=== PATIENT | male | born 1960 | race Caucasian/White ===

== ENCOUNTER 2016-06-29 07:52 | Emergency (ER) | payer OTHER ==
[2016-06-29] MEDS ORDERED: DIPHTH,PERTUSS(ACELL),TET 0.5 ML DISP.SYRIN IM ONE (08:01)
--- NOTE | 2016-06-29 08:02 | PDOC ---
History of Present Illness - General Chief Complaint: Injury Stated Complaint: PAIN ELBOW Time Seen by Provider: 06/29/16 08:01 - History of Present Illness Initial Comments: 06/29/16 08:07 Chief complaint: Pain left elbow History of present illness: Patient was unloading his truck yesterday at work, lost control of a heavy box, which resulted in him striking his elbow against the side of the truck and scraping his fifth finger. He has persistent pain in the elbow, especially with hyperflexion. There is no pain numbness tingling or limited motion in the finger. Review of systems: Denies head or neck injury, chest pain, shortness of breath, abdominal pain, nausea, vomiting, diarrhea, visual or focal neurologic symptoms , unsteadiness of gait, lightheadedness or dizziness, vertigo. Past medical history: Hypertension controlled with antihypertensive medication. Social/family history reviewed and noncontributory Physical exam: Alert and oriented 3, well-developed well-nourished, no acute distress, cheerful and cooperative Afebrile, vital signs normal Head atraumatic. PERRLA, ENT clear Neck supple without bruit mass or nodes. No tenderness or deformity, full range of motion without pain Chest clear bilaterally. No rib cage or chest wall tenderness or deformity CV S1 and S2 normal without murmur or gallop pulses. Symmetric no JVD or edema Abdomen benign Neurological C2 to 12 intact. Strength is symmetric. No focal sensory or motor deficits. Gait stable. Extremities: There is point tenderness over the radial head, left elbow. There is no deformity, swelling, effusion, or crepitus. There is full range of motion in extension and flexion, however, with flexion there is mild pain. No limitation or pain with supination and pronation. Pulses full to the distal extremity. No distal sensory or motor deficits. The left fifth finger demonstrates an abrasion over the dorsum of the middle and distal phalanges. This is superficial. There is full joint flexion against resistance of the PIP and DIP joints. There is no sensory deficit to the fingertip. There is no deformity, either angular rotational, and no pain or tenderness. Impression: Elbow contusion, possible minor radial head fracture. Superficial abrasion of the finger Plan: X-ray and further orthopedic management of the elbow. Wound care and tetanus booster abrasion on the finger. Past History - Past Medical History Allergies/Adverse Reactions: Allergies Allergy/AdvReac Type Severity Reaction Status Date / Time No Known Allergies Allergy Verified 06/29/16 07:53 Home Medications: Ambulatory Orders Lisinopril/Hydrochlorothiazide [Lisinopril-Hctz 10-12.5 mg Tab] 1 each PO Medical Decision Making - Medical Decision Making 06/29/16 08:43 X-ray of the elbow shows only calcifications over the olecranon, but there is no swelling redness or tenderness in this area. This is probably old. The radial head appears intact, but occult fracture cannot be completely excluded The wound was scrubbed, irrigated, and dressed with bacitracin The left arm was placed in a sling to allow rest of the elbow. If pain persists , patient is instructed to see an orthopedist for further evaluation and treatment. He is cautioned to not maintained immobilization for an extended period due to the possibility of stiffness and functional impairment. He understands and agrees. Will follow up as directed. *DC/Admit/Observation/Transfer Diagnosis at time of Disposition: Contusion of left elbow Qualifiers: Encounter type: initial encounter Qualified Code(s): S50.02XA - Contusion of left elbow, initial encounter Abrasion of finger Qualifiers: Encounter type: initial encounter Qualified Code(s): S60.419A - Abrasion of unspecified finger, initial encounter - Discharge Dispostion Disposition: HOME Condition at time of disposition: Stable Admit: No - Referrals Referrals: Bolivar Galloway MD [Staff Physician] - 3 days - Patient Instructions Printed Discharge Instructions: How to Use a Sling, DI for Contusion, DI for Abrasion Additional Instructions: Do not immobilize the elbow and a sling for longer than 3 days without consulting an orthopedist. Stiffness and disability could result. - Post Discharge Activity Work/School Note: Back to Work
[2016-06-29 08:06] VITALS: BP 171/97; PULSE 71; TEMP 97.5; BMI 32.5
== END 2016-06-29 08:55 | disposition home or self-care (01) ==
LOC: FER 07:52
PROC: 3E0234Z Introduction of Serum, Toxoid and Vaccine into Muscle, Percutaneous Approach (ICD-10-PCS; principal; 2016-06-29)
DX: S50.02XA Contusion of left elbow, initial encounter (principal); S60.417A Abrasion of left little finger, initial encounter; W22.09XA Striking against other stationary object, initial encounter; Y93.89 Activity, other specified; Y92.9 Unspecified place or not applicable; Y99.0 Civilian activity done for income or pay; I10 Essential (primary) hypertension
CPT/HCPCS: 73070-TC-LT; 90715; 99283-25

== ENCOUNTER 2018-04-06 18:50 | Emergency (ER) | payer OTHER ==
[2018-04-06 19:16] VITALS: BP 139/89; PULSE 73; TEMP 97.8; BMI 32.5
--- NOTE | 2018-04-06 19:52 | PDOC ---
History of Present Illness - History of Present Illness Initial Comments: 04/06/18 20:02 The patient is a 57 year old male, with a significant past medical history of tendonitis to the right hand and hypertension, who presents to the emergency department with, dog bite to the right hand. As per patient, he was breaking up a fight between his dogs and one of them bit the palmar aspect of his right hand. They also endorse 3 superficial cuts to the lateral portion of the thumb. Dogs are up to date with their immunizations. The patient went to urgent care prior to his arrival. Urgent care advised that he would need to see a hand specialist, prompting his visit to the ER. He denies decreased ROM, weakness, or tingling to the hand. He denies any recent fevers, chills, headache or dizziness. He denies any recent nausea, vomit , diarrhea or constipation. He denies any recent chest pain or shortness of breath. He denies any recent dysuria, frequency, urgency or hematuria. PAST MEDICAL HISTORY: Hypertension. PAST SURGICAL HISTORY: no significant history FAMILY HISTORY: no pertinent history SOCIAL HISTORY: Pt lives with family and is employed. MEDICATIONS: reviewed ALLERGIES: As per nursing notes ROS: General: No fevers or chills, no weakness, no weight loss HEENT: No change in vision. No sore throat,. No ear pain CardioVascular: No chest pain or shortness of breath Respiratory:No cough, or wheezing. Gastrointestinal: no nausea, vomiting, diarrhea or constipation, No rectal bleeding Genitourinary: No dysuria, hematuria, or frequency Musculoskeletal: No joint or muscle pain or swelling Neurologic: No headache, vertigo, dizziness or loss of consciousness Psychiatric: nor depression +Skin: Laceration to the right hand. No rashes or easy bruising Endocrine: no increased thirst or abnormal weight change Allergic: no skin or latex allergy All other systems reviewed and normal Physical Exam: GENERAL: The patient is awake, alert, and fully oriented, in no acute distress. HEAD: Normal with no signs of trauma. EYES: Pupils equal, round and reactive to light, extraocular movements intact, sclera anicteric, conjunctiva clear. +EXTREMITIES: Right hand: 2 cm laceration over the thenar amanenet of the right hand with mild venous oozing. Full ROM and sensation distally intact. 3 superficial cm lacerations to the lateral portion of the thumb. No active bleeding, appearing superficial. Normal range of motion, no edema. NEUROLOGICAL: Normal speech, normal gait. PSYCH: Normal mood, normal affect. SKIN: Warm, Dry, normal turgor, no rashes or lesions noted. <Isa Cao - Last Filed: 04/06/18 20:02> - General History Source: Patient Exam Limitations: No Limitations - History of Present Illness Initial Comments: 04/06/18 20:33 A portion of this note was documented by scribe services under my direction. I have reviewed the details of the note, within reason, and agree with the documentation. The case summary and management plan written by me. Procedure note Lacerations were anesthetized with 1% lidocaine no epinephrine. Lacerations were thoroughly irrigated with normal saline using a Zerowet One suture was placed in the largest laceration to lucid close it as it was still bleeding Bacitracin and sterile dressing was applied Patient was made aware that there is a possible tooth/foreign body in his hand. Patient was given copies of his x-rays Patient will be referred to a hand surgeon. Patient's started on Augmentin first dose given in the emergency room and prescription sent to his pharmacy <Magalis Simpson I - Last Filed: 04/06/18 20:38> - General Chief Complaint: Laceration Stated Complaint: RIGHT HAND LACERATION Time Seen by Provider: 04/06/18 19:27 Past History <Isa Cao - Last Filed: 04/06/18 20:02> - Past Medical History COPD: No HTN: Yes - Suicide/Smoking/Psychosocial Hx Smoking History: Former smoker Have you smoked in the past 12 months: No If you are a former smoker, when did you quit?: 40 yrs ago Information on smoking cessation initiated: No Hx Alcohol Use: No Drug/Substance Use Hx: No Substance Use Type: None <Magalis Simpson I - Last Filed: 04/06/18 20:38> - Past Medical History Allergies/Adverse Reactions: Allergies Allergy/AdvReac Type Severity Reaction Status Date / Time No Known Allergies Allergy Verified 04/06/18 18:54 Home Medications: Ambulatory Orders Amoxicillin/Potassium Clav [Augmentin 875-125 Tablet] 1 each PO BID #10 tablet 04/06/18 Hydrochlorothiazide [Hctz -] 12.5 mg PO DAILY 04/06/18 Lisinopril 10 mg PO DAILY 04/06/18 *Physical Exam - Vital Signs Last Vital Signs Temp Pulse Resp BP Pulse Ox 97.8 F 73 16 139/89 97 04/06/18 19:06 04/06/18 19:06 04/06/18 19:06 04/06/18 19:06 04/06/18 19:06 <Isa Cao - Last Filed: 04/06/18 20:02> - Vital Signs Last Vital Signs Temp Pulse Resp BP Pulse Ox 97.8 F 73 16 139/89 97 04/06/18 19:06 04/06/18 19:06 04/06/18 19:06 04/06/18 19:06 04/06/18 19:06 <Magalis Simpson I - Last Filed: 04/06/18 20:38> *DC/Admit/Observation/Transfer - Attestations Scribe Attestion: 04/06/18 20:03 Documentation prepared by Isa Cao, acting as medical dosimetrist for Magalis Simpson MD. <Isa Cao - Last Filed: 04/06/18 20:02> - Discharge Dispostion Decision to Admit order: No <Magalis Simpson I - Last Filed: 04/06/18 20:38> Diagnosis at time of Disposition: Dog bite of right hand Qualifiers: Encounter type: initial encounter Qualified Code(s): S61.451A - Open bite of right hand, initial encounter; W54.0XXA - Bitten by dog, initial encounter - Discharge Dispostion Disposition: HOME Condition at time of disposition: Good - Referrals Referrals: Snow England MD [Primary Care Provider] - - Patient Instructions Printed Discharge Instructions: DI for Dog Bite Additional Instructions: Tylenol or Motrin as needed for pain Your x-ray shows a possible foreign body of a dog tooth in the bite. It was not readily visible however it is important to make the hand surgeon aware of the possible foreign body. Take Augmentin 1 tablet twice a day for 5 days. Follow-up with a hand surgeon Dr. Walters at [phone] call in the morning for an appointment Return to the emergency department immediately with ANY new, persistent or worsening symptoms. Continue any medications as previously prescribed by your physician. You should follow up with your primary doctor as soon as possible regarding today's emergency department visit. . Please make sure your doctor reviews the results of your emergency evaluation. Thank you for coming to the Emergency Department today for your care. It was a pleasure to see you today. Please note that your evaluation is INCOMPLETE until you follow-up with your doctor. - Post Discharge Activity
[2018-04-06] MEDS ORDERED: AMOX TR/POT CLAV 875MG/125MG TABLETS (FP) PO ONE (20:35)
[2018-04-06] MEDS ORDERED: AMOX TR/POT CLAV 875MG/125MG TABLETS (FP) ONE (20:42)
== END 2018-04-06 20:47 | disposition home or self-care (01) ==
LOC: FER 18:50
PROC: 0HQFXZZ Repair Right Hand Skin, External Approach (ICD-10-PCS; principal; 2018-04-06)
DX: S61.451A Open bite of right hand, initial encounter (principal); S60.371A Other superficial bite of right thumb, initial encounter; W54.0XXA Bitten by dog, initial encounter; Y93.89 Activity, other specified; Y92.9 Unspecified place or not applicable; I10 Essential (primary) hypertension; Z87.891 Personal history of nicotine dependence
CPT/HCPCS: 73130-TC-RT-FY; 99282-25

== ENCOUNTER 2020-06-16 09:55 | Emergency (ER) | payer OTHER ==
[2020-06-16 10:16] VITALS: BP 165/90; PULSE 90; TEMP 98.1; BMI 31.0
[2020-06-16] MEDS ORDERED: predniSONE 20 MG TABLET (UD) PO ONE (10:25)
[2020-06-16] MEDS ORDERED: predniSONE 20 MG TABLET (UD) ONE (10:30)
[2020-06-16] MEDS ORDERED: DOXYCYCLINE HYCLATE 100 MG CAPSULE PO ONE (14:44)
== END 2020-06-16 11:51 | disposition home or self-care (01) ==
LOC: FER 09:55
DX: M79.674 Pain in right toe(s) (principal)
CPT/HCPCS: 73610-TC-RT-FY; 73630-TC-RT-FY; 99283-25